=== PATIENT | male | born 1965 | race Caucasian/White ===

== ENCOUNTER → 2016-06-18 | Outpatient (CLI) | payer OTHER ==
[2016-06-18 14:43] VITALS: BP 153/83; PULSE 81; RESP 16; TEMP 98.3; BMI 51.1
--- NOTE | 2016-06-18 15:15 | P.HPBAR ---
Bariatric H&P - History & Physicial H&P Date: 06/18/16 History & Physicial: Visit/CC: Initial Consult Patient initial contact: Initial weight: 161.592 kg Initial weight in pounds: 356.00 Height: 5 ft 10 in Initial BMI: 51.1 Last weight: Current weight: 161.592 kg Current weight in pounds: 356.00 Current BMI: 51.1 [place] body weight (based on NIH guidelines): 75.296 kg Excess body weight loss: 0.0% The patient is a 51 year-old M who presents for Bariatric Assessment. Patient presents for sleeve gastrectomy constipation. The patient has been morbidly obese most of his adult life. He attended a recent information summer. He has a good understanding of the procedure. His has a LAP-BAND. Past Medical History Past Medical History: GERD/Reflux, Hypertension History of Any Multi-Drug Resistant Organisms: None Reported Past Surgical History: Adenoidectomy, Tonsillectomy Additional Past Surgical History / Comment(s): psoriasis Past Anesthesia/Blood Transfusion Reactions: No Reported Reaction Past Psychological History: No Psychological Hx Reported Smoking Status: Never smoker Past Alcohol Use History: None Reported Past Drug Use History: None Reported Surgical - Exam Vital Signs Temp Pulse Resp BP 98.3 F 81 16 153/83 06/18/16 14:39 06/18/16 14:39 06/18/16 14:39 06/18/16 14:39 - General well developed, well nourished, no distress - Eyes PERRL - ENT normal pinna - Neck no masses - Respiratory normal expansion - Cardiovascular Rhythm: regular - Abdomen Abdomen: soft Bariatric Assessment & Plan Plan: Morbid obesity with BMI 51. Patient will undergo authorization for sleeve gastrectomy. He will undergo EGD in the near future. He will also have the psych eval performed. He will follow -up in one month. Bariatric Checklist Checklist: Plan: Checklist: EGD: 1. Hiatal hernia: 2. H. Pylori: HgbA1c: Vitamin D: Smoking: Never smoker Primary care physician referral: Psychiatry clearance: Cardiology clearance: Sleep study: Diet journal: VTE risk score: VTE risk level: Rehab needs at discharge:
== END | disposition home or self-care (01) ==
LOC: BARWHC3 14:28
PROVIDERS: ATTEND Surgery
DX: Z01.812 Encounter for preprocedural laboratory examination (principal); E66.01 Morbid (severe) obesity due to excess calories; Z68.43 Body mass index [BMI] 50.0-59.9, adult
CPT/HCPCS: 99201

== ENCOUNTER 2016-06-22 08:02 | Day surgery (SDC) | payer OTHER ==
[2016-06-20 10:39] VITALS: BMI 51.0
[~2016-06-22 08:02] MED LIST: LACTATED RINGERS 1,000 ML IV SCH
[2016-06-22] MEDS ORDERED: LIDOCAINE 1% 20 ML VIAL (10MG/ML) FOR IV START INTRADERMA ONE (08:07)
[2016-06-22 08:17] VITALS: RESP 16; TEMP 97.8
[2016-06-22] MEDS ORDERED: MIDAZOLAM 2 MG/2 ML VIAL ONE (09:54)
[2016-06-22] MEDS ORDERED: KETAMINE 10 MG/ML 20 ML VIAL ONE (09:54)
[2016-06-22] MEDS ORDERED: fentaNYL (PF) 50 MCG/ML 2 ML AMP ONE (09:54)
[2016-06-22] MEDS ORDERED: LIDOCAINE 1% INJ 10MG/ML (20 ML MDV) ONE (09:54)
[2016-06-22] MEDS ORDERED: PROPOFOL 10 MG/ML 20 ML VIAL IV ONE (09:54)
--- NOTE | 2016-06-22 10:01 | P.GSHP ---
History of Present Illness H&P Date: 06/22/16 Chief Complaint: GERD, morbid obesity [employer] 51-year-old male undergoing workup for sleeve gastrectomy. He presents today for EGD. He's had some issues with GERD. Past Medical History Past Medical History: GERD/Reflux, Hypertension, Skin Disorder Additional Past Medical History / Comment(s): PSORIASIS History of Any Multi-Drug Resistant Organisms: None Reported Past Surgical History: Adenoidectomy, Tonsillectomy Additional Past Surgical History / Comment(s): COLONOSCOPY X 2 Past Anesthesia/Blood Transfusion Reactions: No Reported Reaction Past Psychological History: No Psychological Hx Reported Smoking Status: Never smoker Past Alcohol Use History: None Reported Past Drug Use History: None Reported - Past Family History Brother(s) Family Medical History: Cancer Medications and Allergies Home Medications Medication Instructions Recorded Confirmed Type Lansoprazole [Prevacid] 30 mg PO DAILY 06/18/16 06/22/16 History Losartan/Hydrochlorothiazide 1 each PO DAILY 06/18/16 06/22/16 History [Losartan-Hctz 100-25 mg Tab] amLODIPine [Norvasc] 10 mg PO DAILY 06/18/16 06/22/16 History Allergies Allergy/AdvReac Type Severity Reaction Status Date / Time No Known Allergies Allergy Verified 06/20/16 10:35 Surgical - Exam Vital Signs Temp Pulse Resp BP Pulse Ox 97.8 F 71 16 124/81 97 06/22/16 08:12 06/22/16 08:12 06/22/16 08:12 06/22/16 08:12 06/22/16 08:12 - General well developed, no distress - Eyes PERRL - ENT normal pinna - Neck no masses - Respiratory normal expansion - Cardiovascular Rhythm: regular - Abdomen Abdomen: soft Assessment and Plan Plan: GERD Pacing BMI 51 We'll perform EGD
--- NOTE | 2016-06-22 10:13 | P.OP ---
Date of Procedure: 06/22/16 Preoperative Diagnosis: GERD Morbid obesity Postoperative Diagnosis: Mild antral gastritis No evidence of hiatal hernia Mild esophagitis Procedure(s) Performed: EGD Anesthesia: MAC Surgeon: Jason Cook Pathology: other (Antrum, esophagus) Condition: stable Disposition: PACU Description of Procedure: The patient's placed on the endoscopy table in the lateral position. He received IV sedation. The gastroscope was then placed oropharynx and passed into the esophagus and into the stomach. Scope was then placed through the pylorus. The first and second portion of the duodenum appeared normal. Scope was then brought back and the antrum and this appeared mildly inflamed a biopsy was performed. The scope was then retroflexed and the remainder of the stomach appeared normal. There was no significant hiatal hernia. The GE junction was at 40 cm. There is minimal distal esophagitis. A biopsies performed. The proximal esophagus appeared normal. The scope was withdrawn for patient.
[2016-06-22 10:36] VITALS: BP 138/91; PULSE 66
== END 2016-06-22 11:00 | disposition home or self-care (01) ==
LOC: ORWHC2ENDO 08:02
PROVIDERS: ATTEND Surgery
DX: K21.0 Gastro-esophageal reflux disease with esophagitis (principal); K29.50 Unspecified chronic gastritis without bleeding; E66.01 Morbid (severe) obesity due to excess calories; Z68.43 Body mass index [BMI] 50.0-59.9, adult; I10 Essential (primary) hypertension; Z79.899 Other long term (current) drug therapy
CPT/HCPCS: 88305; 88342; 43239; J2250; J2001; J3010; J2704; 99153

== ENCOUNTER → 2016-07-16 | Outpatient (CLI) | payer OTHER ==
[2016-07-16 12:34] VITALS: BMI 51.5
[2016-07-16 16:26] VITALS: BP 141/80; PULSE 74; RESP 16; TEMP 97.8
--- NOTE | 2016-07-16 16:34 | P.HPBAR ---
Bariatric H&P - History & Physicial H&P Date: 07/16/16 History & Physicial: Visit/CC: Pre-Surg Patient initial contact: Initial weight: 161.592 kg Initial weight in pounds: 356.24 Height: 5 ft 10 in Initial BMI: 51.1 Last weight: Current weight: 163.066 kg Current weight in pounds: 359.50 Current BMI: 51.5 [place] body weight (based on NIH guidelines): 75.296 kg Excess body weight loss: The patient is a 51 year-old M who presents for Bariatric Assessment. The patient presents for sleeve gastrectomy consultation follow-up. He is hoping to have a significant gastric be done next month. His BMI 52. Review of Systems Constitutional: Reports as per HPI Past Medical History Past Medical History: GERD/Reflux, Hypertension, Skin Disorder Additional Past Medical History / Comment(s): PSORIASIS History of Any Multi-Drug Resistant Organisms: None Reported Past Surgical History: Adenoidectomy, Tonsillectomy Additional Past Surgical History / Comment(s): COLONOSCOPY X 2 Past Anesthesia/Blood Transfusion Reactions: No Reported Reaction Past Psychological History: No Psychological Hx Reported Smoking Status: Never smoker Past Alcohol Use History: None Reported Past Drug Use History: None Reported - Past Family History Brother(s) Family Medical History: Cancer Surgical - Exam Vital Signs Temp Pulse Resp BP 97.8 F 74 16 141/80 07/16/16 16:22 07/16/16 16:22 07/16/16 16:22 07/16/16 16:22 - General well developed, well nourished, no distress - Eyes PERRL - ENT normal pinna - Neck no masses - Respiratory normal expansion - Cardiovascular Rhythm: regular - Abdomen Abdomen: soft, non tender Bariatric Assessment & Plan Plan: Morbid obesity with multiple comorbidities. Patient will be scheduled for laparoscopic sleeve gastrectomy next month. I went over the risks and benefits of procedure and discussed the complications of the sleeve gastrectomy such as staple line bleeding, perforation or obstruction. Bariatric Checklist Checklist: Plan: Checklist: EGD: 1. Hiatal hernia: 2. H. Pylori: HgbA1c: Vitamin D: Smoking: Never smoker Primary care physician referral: Psychiatry clearance: Cardiology clearance: Sleep study: Diet journal: VTE risk score: VTE risk level: Rehab needs at discharge:
== END | disposition home or self-care (01) ==
LOC: BARWHC3 08:49
PROVIDERS: ATTEND Surgery
DX: Z01.818 Encounter for other preprocedural examination (principal); Z71.3 Dietary counseling and surveillance; Z68.43 Body mass index [BMI] 50.0-59.9, adult; E66.01 Morbid (severe) obesity due to excess calories
CPT/HCPCS: 97804; 99211

== ENCOUNTER 2016-08-16 08:50 | Inpatient (IN) | payer OTHER ==
[~2016-08-16 08:50] MED LIST changes: +DEXAMETHASONE SOD PHOSPHATE 10 MG/ML 1 ML VIAL IV ONE; +ENOXAPARIN 40 MG/0.4 ML SYRINGE SQ ONE; +MIDAZOLAM 2 MG/2 ML VIAL IV PRN; +ONDANSETRON 4 MG/2 ML VIAL IVP ONE; +ceFAZolin 2 GM in SODIUM CHLORIDE 0.9% 100 ML IVPB ONE
[2016-08-16] MEDS ORDERED: LIDOCAINE 1% 20 ML VIAL (10MG/ML) FOR IV START INTRADERMA ONE ×2 (09:10→09:13)
--- NOTE | 2016-08-16 10:05 | P.GSHP ---
History of Present Illness H&P Date: 08/16/16 Chief Complaint: Morbid obesity BMI 51 This a 51-year-old male who's had lifetime problems obesity. Patient presents today for laparoscopic sleeve gastrectomy. The patient is aware of risk of surgery including conversion O procedure and injury to the stomach, liver and spleen. He is also aware the risk of gastric staple line disruption, bleeding or perforation. - Constitutional Constitutional: Reports as per HPI Past Medical History Past Medical History: GERD/Reflux, Hypertension, Skin Disorder Additional Past Medical History / Comment(s): PSORIASIS. EDEMA IN ANKLES OCC, R /T ACTIVITY. History of Any Multi-Drug Resistant Organisms: None Reported Past Surgical History: Adenoidectomy, Ear Surgery, Tonsillectomy Additional Past Surgical History / Comment(s): BMT. COLONOSCOPY X 2. EGD. Past Anesthesia/Blood Transfusion Reactions: Previous Problems w/ Anesthesia Additional Past Anesthesia/Blood Transfusion Reaction / Comment(s): WOKE UP DURING COLONOSCOPY Past Psychological History: No Psychological Hx Reported Smoking Status: Never smoker Past Alcohol Use History: Occasional Past Drug Use History: None Reported - Past Family History Brother(s) Family Medical History: Cancer Medications and Allergies Home Medications Medication Instructions Recorded Confirmed Type Lansoprazole [Prevacid] 30 mg PO DAILY 06/18/16 08/16/16 History Losartan/Hydrochlorothiazide 1 each PO DAILY 06/18/16 08/16/16 History [Losartan-Hctz 100-25 mg Tab] amLODIPine [Norvasc] 10 mg PO DAILY 06/18/16 08/16/16 History Allergies Allergy/AdvReac Type Severity Reaction Status Date / Time No Known Allergies Allergy Verified 08/16/16 09:05 Surgical - Exam Vital Signs Temp Pulse Resp BP Pulse Ox 98.1 F 69 16 132/83 96 08/16/16 09:07 08/16/16 09:07 08/16/16 09:07 08/16/16 09:07 08/16/16 09:07 BMI 51 - General well developed, no distress - Eyes PERRL - ENT normal pinna - Neck no masses - Respiratory normal expansion - Cardiovascular Rhythm: regular - Abdomen Abdomen: soft, non tender Assessment and Plan Plan: Morbid obesity. We'll perform sleeve gastrectomy.
[2016-08-16] MEDS ORDERED: GLYCOPYRROLATE 0.2 MG/ML 2 ML VIAL ONE (10:30)
[2016-08-16] MEDS ORDERED: PROPOFOL 10 MG/ML 20 ML VIAL IV ONE (10:30)
[2016-08-16] MEDS ORDERED: MIDAZOLAM 2 MG/2 ML VIAL ONE (10:30)
[2016-08-16] MEDS ORDERED: LABETALOL 5 MG/ML VIAL MDV ONE (10:30)
[2016-08-16] MEDS ORDERED: fentaNYL (PF) 50 MCG/ML 2 ML AMP ONE (10:30)
[2016-08-16] MEDS ORDERED: NEOSTIGMINE 1 MG/ML 10 ML VIAL ONE (10:30)
[2016-08-16] MEDS ORDERED: ROCURONIUM BROMIDE 10 MG/ML 10 ML VIAL IV ONE (10:30)
[2016-08-16] MEDS ORDERED: METHYLENE BLUE 15 MG in SODIUM CHLORIDE 0.9% 500 ML IRRIGATION ONE (10:30)
[2016-08-16] MEDS ORDERED: SUCCINYLCHOLINE CHLORIDE VIAL 200 MG/10 ML VIAL IV ONE (10:30)
[2016-08-16] MEDS ORDERED: BUPIVACAIN-EPI 0.25%-1:200,000 30 ML VIAL SQ ONE ×2 (11:05)
[2016-08-16] MEDS ORDERED: NALOXONE 0.4 MG/ML 1 ML VIAL IV PRN (11:53)
[2016-08-16] MEDS ORDERED: HYDROmorphone 1 MG/ML 1 ML SYRINGE IVP PRN (11:53)
[2016-08-16] MEDS ORDERED: HYDROcodone/APAP 7.5-325MG 1 EACH TAB PO PRN (11:56)
--- NOTE | 2016-08-16 11:58 | P.OP ---
Date of Procedure: 08/16/16 Preoperative Diagnosis: Morbid obesity BMI 52 Postoperative Diagnosis: Warm obesity BMI 52 Procedure(s) Performed: Laparoscopic sleeve gastrectomy Anesthesia: NATHALIE Surgeon: Jason Cook Estimated Blood Loss (ml): 20 Pathology: other (Gastric remnant) Condition: stable Disposition: PACU Description of Procedure: The patient was placed on the operating room table in the supine position. She received general anesthesia and then was placed in dorsal lithotomy position. Her abdomen was prepped and draped in sterile fashion. The skin incision sites were anesthetized 1% local Xylocaine. And then the skin was incised with an 11 blade in the left lateral position. Using a blade less trocar under direct visualization the peritoneal cavity was entered. The abdomen was insufflated and then a 5 mm laparoscope was placed into the peritoneal cavity. A 5 mm trocar was placed in the right epigastric, and right lateral position. A 15 mm trocar was placed in the supra-umbilical position and another 5 mm trocar was placed in the left lateral position. The left lateral lobe of the liver was retracted. The stomach was visualized. The greater curvature of the stomach was then dissected using the Harmonic scissors. The dissection occurred approximately 5 cm from the pylorus to the level of the left deisy. There was no hiatal hernia seen. At this point a 40-Scottish bougie dilator was placed the oropharynx and passed into the esophagus and into the stomach by the BUYER BROKER. The sleeve gastrectomy was performed by using the powered echelon stapler with a seam guard buttress material. Sequential firings of the stapler were performed. The gastric remnant was then brought out through the 15 mm trocar site. The dilator was withdrawn. And a orogastric tube was replaced into the stomach. The stomach was insufflated with 200 mL of methylene blue normal saline. There was no evidence of extravasation. The abdomen was irrigated there is no bleeding seen. The Keith-Judy device was used to close the 15 mm trocar with 0 Vicryl. Skin was closed with interrupted 3-0 Monocryl sutures once the trochars withdrawn. Dermabond dressing was applied. Patient was sent to recovery in stable condition.
[2016-08-16] MEDS ORDERED: LACTATED RINGERS 1,000 ML IV ONE (12:04)
[2016-08-16] MEDS: HYDROmorphone 1 MG/ML 1 ML SYRINGE IVP PRN ×5 (12:26→13:00)
[2016-08-16] MEDS ORDERED: MIDAZOLAM 2 MG/2 ML VIAL IV ONE (13:00)
[2016-08-16] MEDS: ALBUTEROL NEBULIZED 2.5 MG/3 ML INHALATION SCH ×3 (13:06→19:21)
[2016-08-16] MEDS: 0.9% NACL WITH KCL 20 MEQ/L 1,000 ML IV SCH ×3 (14:17→22:12)
[2016-08-16] MEDS: AMPICILLIN-SULBACTAM 3 GM in SODIUM CHLORIDE 0.9% 100 ML IVPB SCH (16:40)
[2016-08-16] MEDS: ONDANSETRON 4 MG/2 ML VIAL IVP PRN (16:49)
[2016-08-17] MEDS: AMPICILLIN-SULBACTAM 3 GM in SODIUM CHLORIDE 0.9% 100 ML IVPB SCH (00:12)
[2016-08-17] MEDS ORDERED: ACETAMINOPHEN IV (For NPO) 1,000 MG in EMPTY BAG 1 BAG IVPB ONE (04:37)
[2016-08-17] MEDS: ONDANSETRON 4 MG/2 ML VIAL IVP PRN ×3 (05:00→22:14)
[2016-08-17 07:44] LABS: Basophils % (A) 0 %; CH 31.2; CHCM 35.3; Eosinophils % (A) 0 %; HCT 43.7 % (39.0-53.0); HDW 2.78; HGB 15.3 gm/dL (13.0-17.5); Luc # (Auto) 0.13; Luc % (Auto) 1; Lymphocytes # (A) 0.9 k/uL (1.0-4.8); Lymphocytes % (A) 6 %; MCH 31.1 pg (25.0-35.0); MCV 88.8 fL (80.0-100.0); Monocytes # (A) 0.9 k/uL (0-1.0); Monocytes % (A) 7 %; Neutrophils # (A) 12.4 k/uL (1.3-7.7); Neutrophils % (A) 86 %; RBC 4.92 m/uL (4.30-5.90); RDW 13.3 % (11.5-15.5); WBC 14.5 k/uL (3.8-10.6); WBC (Perox) 15.15
[2016-08-17 07:50] LABS: Anion Gap 11 mmol/L; Blood Urea Nitrogen 10 mg/dL (9-20); Calcium 8.7 mg/dL (8.4-10.2); Carbon Dioxide 24 mmol/L (22-30); Chloride 101 mmol/L (98-107); Magnesium 1.9 mg/dL (1.6-2.3); Non-African American GFR(MDRD) >60 (>60 ml/min/1.73 sqM); Phosphorous 2.9 mg/dL (2.5-4.5); Potassium 4.3 mmol/L (3.5-5.1); Sodium 136 mmol/L (137-145)
[2016-08-17] MEDS: ENOXAPARIN 60 MG/0.6 ML SYRINGE SQ SCH ×2 (08:33→22:14)
[2016-08-17] MEDS: ALBUTEROL NEBULIZED 2.5 MG/3 ML INHALATION SCH ×4 (08:48→20:29)
--- NOTE | 2016-08-17 10:48 | FL ---
EXAMINATION TYPE: FL UGI DATE OF EXAM ORDERED: 08/17/2016 10:29 AM HISTORY: Postop gastric sleeve surgery. COMPARISON: None. FINDINGS: There is a moderate amount of holdup egress of barium from the esophagus into the gastric s leeve. This does eventually empty. The ligament of Treitz is in the normal location. There is no sign ificant free air. There is no extravasation. IMPRESSION: STATUS POST GASTRIC SLEEVE.
[2016-08-17] MEDS: LOSARTAN-HCTZ 50-12.5 MG 1 EACH TAB PO SCH (11:09)
[2016-08-17] MEDS: amLODIPine 10 MG TAB PO SCH (11:10)
[2016-08-17] MEDS ORDERED: METOCLOPRAMIDE 5 MG/ML 2 ML VIAL IVP PRN (14:53)
[2016-08-17 15:19] VITALS: BMI 51.1
--- NOTE | 2016-08-17 16:49 | P.PN ---
Subjective Principal diagnosis: Morbid obesity Patient is a 51-year-old male with medical history significant for morbid obesity presenting to the hospital for elective laparoscopic sleeve gastrectomy. Patient tolerated procedure well. Patient is evaluated on the surgical unit is postop day #1. Upper GI series with evidence of moderate obstruction, no leak. Patient denies dysphagia. Patient complains of some nausea without vomiting. Denies chills, fevers, shortness of breath, or chest pain. Denies flatus or bowel movement. Patient complains of burping. Incisional pain controlled. Patient has been up ambulating. Patient is urinating without difficulty. Patient is tolerating a clear liquid diet. Afebrile. Hemodynamically stable. WBC 14.5. Hemoglobin 15.3. Objective - Vital Signs Vital signs: Vital Signs Temp 98.1 F 08/17/16 15:00 Pulse 92 08/17/16 16:05 Resp 16 08/17/16 16:00 BP 147/92 08/17/16 15:00 Pulse Ox 95 08/17/16 15:00 Intake & Output 08/16/16 08/17/16 08/17/16 18:59 06:59 18:59 Intake Total 1800 1450 Output Total 1410 700 700 Balance 390 750 -700 Weight 161.706 kg 161.706 kg Intake: IV 1800 1450 0.9% NaCl with KCl 20 Meq 1350 /l 1,000 ml @ 150 mls/hr IV .Q6H40M PAU Rx#: [id number] Ampicillin-Sulbactam 3 gm 100 In Sodium Chloride 0.9% 100 ml @ 100 mls/hr IVPB Q6HR PAU Rx#:[id number] Output: Urine 1400 700 700 Estimated Blood Loss 10 Other: Voiding Method Toilet Toilet Toilet # Voids 1 4 4 - Exam GENERAL: Pt awake and alert, well-appearing, well-nourished, and in no acute distress. LUNGS: Breath sounds diminished to auscultation bilaterally. No wheezes, rales , or rhonchi. HEART: Heart S1, S2, no S3 or S4. Regular rate and rhythm. No murmurs, rubs or gallops. ABDOMEN: Soft, obese, mild incisional tenderness, nondistended, hypoactive bowel sounds. No guarding, no rebound. Laparoscopic surgical incisions approximated, dry, no erythema and drainage. EXTREMITIES: Palpable peripheral pulses. No calf tenderness. NEUROLOGICAL: Pt oriented x 3. - Labs CBC & Chem 7: 08/17/16 06:41 08/17/16 06:41 Labs: Abnormal Lab Results - Last 24 Hours (Table) 08/17/16 08/17/16 Range/Units 06:41 06:41 WBC 14.5 H (3.8-10.6) k/uL Neutrophils # 12.4 H (1.3-7.7) k/uL Lymphocytes # 0.9 L (1.0-4.8) k/uL Sodium 136 L (137-145) mmol/L Assessment and Plan Plan: Impression: 1. Morbid obesity status post laparoscopic sleeve gastrectomy. 2. Leukocytosis, suspect reactive. Plan: Continue to monitor patient. Continue IV hydration. Continue bariatric clear liquid diet. Continue supportive treatment pain management. Increase ambulation. Continue GI and DVT prophylaxis. Continue incentive spirometry 10 times an hour while awake. Possible discharge home later this afternoon pending clinical status. The above impression and plan have been discussed and directed by Dr. Dr. Cook. Joyce DODGE acting as scribe for Dr. Cook.
[2016-08-18] MEDS: amLODIPine 10 MG TAB PO SCH (08:37)
[2016-08-18] MEDS: LOSARTAN-HCTZ 50-12.5 MG 1 EACH TAB PO SCH (08:37)
[2016-08-18] MEDS: ENOXAPARIN 60 MG/0.6 ML SYRINGE SQ SCH (08:38)
[2016-08-18] MEDS: ALBUTEROL NEBULIZED 2.5 MG/3 ML INHALATION SCH ×2 (08:52→10:57)
[2016-08-18 09:05] VITALS: BP 148/74; RESP 16; TEMP 98.1
[2016-08-18 11:13] VITALS: PULSE 90
--- NOTE | 2016-08-18 12:29 | P.DS ---
Providers Date of admission: 08/16/16 08:50 Expected date of discharge: 08/18/16 Attending physician: Jason Cook Consults: 08/16/16 11:53 Consult Physician Routine Consulting Provider: Sukhdeep Vasquez Consult Reason/Comments: Medical management Do you want consulting provider notified?: Yes Primary care physician: Stated None Hospital Course: This a 51-year-old male who underwent laparoscopic sleeve gastrectomy on 2016. The patient did well postoperative. Please see hospital chart for r for details. Pertinent Studies: Esophagram upper GI Procedures: Laparoscopic sleeve gastrectomy Patient Condition at Discharge: Good Plan - Discharge Summary New Discharge Prescriptions: HYDROcodone/APAP 7.5-325MG [[place] 7.5-325] 1 tab PO Q6HR PRN #28 tab PRN Reason: Pain Ondansetron Odt [Zofran ODT] 8 mg PO Q8HR #20 tab Sucralfate [Carafate] 1 gm PO TID #90 tablet Discharge Medication List Lansoprazole [Prevacid] 30 mg PO DAILY 06/18/16 [History] Losartan/Hydrochlorothiazide [Losartan-Hctz 100-25 mg Tab] 1 tab PO DAILY [History] amLODIPine [Norvasc] 10 mg PO DAILY 06/18/16 [History] HYDROcodone/APAP 7.5-325MG [[place] 7.5-325] 1 tab PO Q6HR PRN #28 tab 08/16/16 [ Rx] Ondansetron Odt [Zofran ODT] 8 mg PO Q8HR #20 tab 08/16/16 [Rx] Sucralfate [Carafate] 1 gm PO TID #90 tablet 08/16/16 [Rx] Follow up Appointment(s)/Referral(s): Sukhdeep Vasquez MD [STAFF PHYSICIAN] - 08/23/16 2:30 pm Jason Cook MD [STAFF PHYSICIAN] - 08/27/16 1:00 pm (Follow-up in bariatric center) Patient Instructions/Handouts: Laparoscopic Sleeve Gastrectomy (DC) Activity/Diet/Wound Care/Special Instructions: No heavy lifting, pushing, or pulling items greater than 10 pounds. Bariatric diet as previously directed. No caffeinated beverages or straws. Shower daily, no soaking in bath tubs, pools, or hot tubs. No driving while taking pain medication. Notify surgeon with any signs or symptoms of infection, increased pain, or not tolerating diet. Discharge Disposition: HOME SELF-CARE
== END 2016-08-18 12:20 | disposition home or self-care (01) | DRG 621 ==
LOC: 2ORWHC 08:50 → 3SUR 12:00
PROVIDERS: ADMIT Surgery; ATTEND Surgery
PROC: 0DB64Z3 Excision of Stomach, Percutaneous Endoscopic Approach, Vertical (ICD-10-PCS; principal; 2016-08-16 10:00)
DX: E66.01 Morbid (severe) obesity due to excess calories (principal); I10 Essential (primary) hypertension; K21.9 Gastro-esophageal reflux disease without esophagitis; D72.829 Elevated white blood cell count, unspecified; R11.0 Nausea; L40.9 Psoriasis, unspecified; R60.9 Edema, unspecified; Z80.9 Family history of malignant neoplasm, unspecified; Z79.899 Other long term (current) drug therapy; Z68.43 Body mass index [BMI] 50.0-59.9, adult; Z71.3 Dietary counseling and surveillance; Z86.69 Personal history of other diseases of the nervous system and sense organs
CPT/HCPCS: 74240; 80051; 82310; 82565; 83735; 84100; 84520; 85025; 88307; 94640; 94760; 94762

== ENCOUNTER → 2016-08-27 | Outpatient (CLI) | payer OTHER ==
--- NOTE | 2016-08-27 08:49 | P.HPBAR ---
Bariatric H&P - History & Physicial H&P Date: 08/27/16 History & Physicial: Visit/CC: Patient initial contact: Initial weight: 161.592 kg Initial weight in pounds: Height: Initial BMI: Last weight: Current weight: Current weight in pounds: Current BMI: [place] body weight (based on NIH guidelines): Excess body weight loss: The patient is a 51 year-old M who presents for Bariatric Assessment. The patient presents today for sleeve gastrectomy fall. He is doing quite well. He is presents for 2 weeks postoperatively. He's lost approximately 40 pounds since his initial consultation. He does have problems with back pain. Patient states that his back pain is worsened since his surgery he attributes this to his stay in the hospital bed. He is currently seeing Dr. Ibarra. sarai Miller has decreased some of his hypertensive medications. Past Medical History Past Medical History: GERD/Reflux, Hypertension, Skin Disorder Additional Past Medical History / Comment(s): PSORIASIS. EDEMA IN ANKLES OCC, R /T ACTIVITY. History of Any Multi-Drug Resistant Organisms: None Reported Past Surgical History: Adenoidectomy, Ear Surgery, Tonsillectomy Additional Past Surgical History / Comment(s): BMT. COLONOSCOPY X 2. EGD. Past Anesthesia/Blood Transfusion Reactions: Previous Problems w/ Anesthesia Additional Past Anesthesia/Blood Transfusion Reaction / Comm: WOKE UP DURING COLONOSCOPY Past Psychological History: No Psychological Hx Reported Smoking Status: Never smoker Past Alcohol Use History: Occasional Past Drug Use History: None Reported - Past Family History Brother(s) Family Medical History: Cancer Surgical - Exam - General well developed, no distress - Eyes PERRL - Neck no masses - Respiratory normal expansion - Cardiovascular Rhythm: regular - Abdomen Abdomen: soft, non tender Bariatric Assessment & Plan Plan: Status post sleeve gastrectomy. Patient is doing quite well. He'll follow-up in 2 weeks. His back pain hopefully will improve once he relates some more. Bariatric Checklist Checklist: Plan: Checklist: EGD: 1. Hiatal hernia: 2. H. Pylori: HgbA1c: Vitamin D: Smoking: Never smoker Primary care physician referral: Psychiatry clearance: Cardiology clearance: Sleep study: Diet journal: VTE risk score: VTE risk level: Rehab needs at discharge:
[2016-08-27 09:10] VITALS: BP 125/89; PULSE 84; RESP 14; TEMP 97.6; BMI 48.4
--- NOTE | 2016-08-27 10:32 | P.HPBAR ---
Bariatric H&P - History & Physicial H&P Date: 08/27/16 History & Physicial: Visit/CC: Patient initial contact: Initial weight: 161.592 kg Initial weight in pounds: Height: Initial BMI: Last weight: Current weight: Current weight in pounds: Current BMI: [place] body weight (based on NIH guidelines): Excess body weight loss: The patient is a 51 year-old M who presents for Bariatric Assessment. The patient presents today for sleeve gastrectomy follow-up. He is doing quite well. He's had minimal complaints of pain. He's had minimal GERD. Review of Systems Constitutional: Reports as per HPI Past Medical History Past Medical History: GERD/Reflux, Hypertension, Skin Disorder Additional Past Medical History / Comment(s): PSORIASIS. EDEMA IN ANKLES OCC, R /T ACTIVITY. History of Any Multi-Drug Resistant Organisms: None Reported Past Surgical History: Adenoidectomy, Ear Surgery, Tonsillectomy Additional Past Surgical History / Comment(s): BMT. COLONOSCOPY X 2. EGD., gastric sleeve 08/16/16 Dr.Zubin Cook Past Anesthesia/Blood Transfusion Reactions: Previous Problems w/ Anesthesia Additional Past Anesthesia/Blood Transfusion Reaction / Comm: WOKE UP DURING COLONOSCOPY Past Psychological History: No Psychological Hx Reported Smoking Status: Never smoker Past Alcohol Use History: Occasional Past Drug Use History: None Reported - Past Family History Brother(s) Family Medical History: Cancer Surgical - Exam Vital Signs Temp Pulse Resp BP 97.6 F 84 14 125/89 08/27/16 09:08 08/27/16 09:08 08/27/16 09:08 08/27/16 09:08 - General well developed, no distress - Eyes PERRL - Cardiovascular Rhythm: regular - Abdomen Abdomen: soft, non tender Bariatric Assessment & Plan Plan: Status post sleeve gastrectomy. Patient is doing quite well. He'll follow-up in 2 weeks. He is doing well postoperatively. Bariatric Checklist Checklist: Plan: Checklist: EGD: 1. Hiatal hernia: 2. H. Pylori: HgbA1c: Vitamin D: Smoking: Never smoker Primary care physician referral: Psychiatry clearance: Cardiology clearance: Sleep study: Diet journal: VTE risk score: VTE risk level: Rehab needs at discharge:
== END | disposition home or self-care (01) ==
LOC: BARWHC3 08:55
PROVIDERS: ATTEND Surgery
DX: Z48.815 Encounter for surgical aftercare following surgery on the digestive system (principal); Z71.3 Dietary counseling and surveillance; E66.01 Morbid (severe) obesity due to excess calories; K21.9 Gastro-esophageal reflux disease without esophagitis; Z98.84 Bariatric surgery status
CPT/HCPCS: 97803; 99211

== ENCOUNTER → 2016-09-10 | Outpatient (CLI) | payer OTHER ==
[2016-09-10 15:10] VITALS: BMI 47.2
[2016-09-10 15:12] VITALS: BP 129/86; PULSE 62; RESP 15; TEMP 98.3
--- NOTE | 2016-09-10 15:53 | P.HPBAR ---
Bariatric H&P - History & Physicial H&P Date: 09/10/16 History & Physicial: Visit/CC: Patient initial contact: Initial weight: 161.592 kg Initial weight in pounds: 356.24 Height: 5 ft 10 in Initial BMI: 51.1 Last weight: Current weight: 149.187 kg Current weight in pounds: 328.90 Current BMI: 47.2 [place] body weight (based on NIH guidelines): 75.296 kg Excess body weight loss: 14.3% The patient is a 51 year-old M who presents for Bariatric Assessment. The patient presents today for sleeve gastrectomy fall. He has had good weight loss. He has some complaints of GERD. Past Medical History Past Medical History: GERD/Reflux, Hypertension, Skin Disorder Additional Past Medical History / Comment(s): PSORIASIS. EDEMA IN ANKLES OCC, R /T ACTIVITY. History of Any Multi-Drug Resistant Organisms: None Reported Past Surgical History: Adenoidectomy, Ear Surgery, Tonsillectomy Additional Past Surgical History / Comment(s): BMT. COLONOSCOPY X 2. EGD., gastric sleeve 08/16/16 Dr.Zubin Cook Past Anesthesia/Blood Transfusion Reactions: Previous Problems w/ Anesthesia Additional Past Anesthesia/Blood Transfusion Reaction / Comm: WOKE UP DURING COLONOSCOPY Past Psychological History: No Psychological Hx Reported Smoking Status: Never smoker Past Alcohol Use History: Occasional Past Drug Use History: None Reported - Past Family History Brother(s) Family Medical History: Cancer Surgical - Exam Vital Signs Temp Pulse Resp BP 98.3 F 62 15 129/86 09/10/16 14:50 09/10/16 14:50 09/10/16 14:50 09/10/16 14:50 - General well developed, no distress - Eyes PERRL - ENT normal pinna - Neck no masses - Respiratory normal expansion - Abdomen Abdomen: soft, non tender Bariatric Assessment & Plan Plan: Status post sleeve history. Patient is doing well. His GERD symptoms are being treated with omeprazole. He'll follow-up in one month Bariatric Checklist Checklist: Plan: Checklist: EGD: 1. Hiatal hernia: 2. H. Pylori: HgbA1c: Vitamin D: Smoking: Never smoker Primary care physician referral: kirby ([place]) Psychiatry clearance: Cardiology clearance: Sleep study: Diet journal: VTE risk score: VTE risk level: Rehab needs at discharge:
== END | disposition home or self-care (01) ==
LOC: BARWHC3 13:34
PROVIDERS: ATTEND Surgery
DX: E66.01 Morbid (severe) obesity due to excess calories (principal); I10 Essential (primary) hypertension; K21.9 Gastro-esophageal reflux disease without esophagitis; Z98.84 Bariatric surgery status
CPT/HCPCS: 97803; 99211

== ENCOUNTER → 2016-10-29 | Outpatient (CLI) | payer OTHER ==
[2016-10-29 13:41] VITALS: BP 144/94; PULSE 61; RESP 14; TEMP 97.9; BMI 42.6
--- NOTE | 2016-10-29 13:53 | P.HPBAR ---
Bariatric H&P - History & Physicial H&P Date: 10/29/16 History & Physicial: Visit/CC: difficulty swallowing/vomiting Patient initial contact: Initial weight: 161.592 kg Initial weight in pounds: 356.24 Height: 5 ft 10 in Initial BMI: 51.1 Last weight: Current weight: 134.717 kg Current weight in pounds: 297.00 Current BMI: 42.6 [place] body weight (based on NIH guidelines): 75.296 kg Excess body weight loss: 31.1% The patient is a 51 year-old M who presents for Bariatric Assessment. Patient is doing fairly well. He complains of some mild dysphagia. He states that he had a piece of sausage stomach. Past Medical History Past Medical History: GERD/Reflux, Hypertension, Skin Disorder Additional Past Medical History / Comment(s): PSORIASIS. EDEMA IN ANKLES OCC, R /T ACTIVITY. History of Any Multi-Drug Resistant Organisms: None Reported Past Surgical History: Adenoidectomy, Ear Surgery, Tonsillectomy Additional Past Surgical History / Comment(s): BMT. COLONOSCOPY X 2. EGD., gastric sleeve 08/16/16 Dr.Zubin Cook Past Anesthesia/Blood Transfusion Reactions: Previous Problems w/ Anesthesia Additional Past Anesthesia/Blood Transfusion Reaction / Comm: WOKE UP DURING COLONOSCOPY Past Psychological History: No Psychological Hx Reported Smoking Status: Never smoker Past Alcohol Use History: Occasional Past Drug Use History: None Reported - Past Family History Brother(s) Family Medical History: Cancer Surgical - Exam Vital Signs Temp Pulse Resp BP 97.9 F 61 14 144/94 10/29/16 13:09 10/29/16 13:09 10/29/16 13:09 10/29/16 13:09 - General well developed, no distress - Eyes PERRL - ENT normal pinna - Neck no masses - Respiratory normal expansion - Cardiovascular Rhythm: regular - Abdomen Abdomen: soft, non tender Bariatric Assessment & Plan Plan: Status post sleeve gastrectomy. Patient underwent loss. He'll follow-up in 2 weeks. If he has any dysphagia he will undergo esophagram/upper GI. Bariatric Checklist Checklist: Plan: Checklist: EGD: 1. Hiatal hernia: 2. H. Pylori: HgbA1c: Vitamin D: Smoking: Never smoker Primary care physician referral: merckler ([place]) Psychiatry clearance: Cardiology clearance: Sleep study: Diet journal: VTE risk score: VTE risk level: Rehab needs at discharge:
[2016-10-29 14:31] LABS: CH 30.9; HCT 48.7 % (39.0-53.0); HDW 2.53; HGB 16.4 gm/dL (13.0-17.5); MCH 31.7 pg (25.0-35.0); MCHC 33.7 g/dL (31.0-37.0); MCV 94.1 fL (80.0-100.0); Mean Platelet Volume 7.5; RBC 5.17 m/uL (4.30-5.90); RDW 13.3 % (11.5-15.5); WBC 6.8 k/uL (3.8-10.6)
[2016-10-29 15:02] LABS: ALT 43 U/L (21-72); AST 25 U/L (17-59); Alkaline Phosphatase 79 U/L (38-126); Anion Gap 12 mmol/L; Blood Urea Nitrogen 20 mg/dL (9-20); Calcium 9.2 mg/dL (8.4-10.2); Carbon Dioxide 24 mmol/L (22-30); Chloride 106 mmol/L (98-107); Glucose 89 mg/dL (74-99); Non-African American GFR(MDRD) >60 (>60 ml/min/1.73 sqM); Potassium 4.4 mmol/L (3.5-5.1); Sodium 142 mmol/L (137-145); Total Protein 6.4 g/dL (6.3-8.2)
[2016-10-29 15:11] LABS: Total Iron Binding Capacity 302 ug/dL (261-462)
[2016-10-29 16:07] LABS: Vitamin B12 973 pg/mL (239-931)
== END | disposition home or self-care (01) ==
LOC: BARWHC3 12:14
PROVIDERS: ATTEND Surgery
DX: Z48.815 Encounter for surgical aftercare following surgery on the digestive system (principal); E55.9 Vitamin D deficiency, unspecified; E66.01 Morbid (severe) obesity due to excess calories; Z68.41 Body mass index [BMI] 40.0-44.9, adult; Z98.84 Bariatric surgery status
CPT/HCPCS: 80053; 82306; 82607; 82746; 83550; 84425; 85027; 97803; 99211

== ENCOUNTER → 2016-11-12 | Outpatient (CLI) | payer OTHER ==
[2016-11-12 17:24] VITALS: BP 140/82; PULSE 56; RESP 16; TEMP 98.4; BMI 42.1
--- NOTE | 2016-11-26 16:50 | P.HPBAR ---
Bariatric H&P - History & Physicial H&P Date: 11/12/16 History & Physicial: Visit/CC: sleeve f/u Patient initial contact: Initial weight: 161.592 kg Initial weight in pounds: 356.24 Height: 5 ft 10 in Initial BMI: 51.1 Last weight: Current weight: 133.311 kg Current weight in pounds: 293.90 Current BMI: 42.1 [place] body weight (based on NIH guidelines): 75.296 kg Excess body weight loss: 32.7% The patient is a 51 year-old M who presents for Bariatric Assessment. Patient presents today for sleeve gastrectomy fall. He's had good weight loss. The patient lost 4 pounds. He has minimal complaints of GERD and arthritis in his knees. Past Medical History Past Medical History: GERD/Reflux, Hypertension, Skin Disorder Additional Past Medical History / Comment(s): PSORIASIS. EDEMA IN ANKLES OCC, R /T ACTIVITY. History of Any Multi-Drug Resistant Organisms: None Reported Past Surgical History: Adenoidectomy, Ear Surgery, Tonsillectomy Additional Past Surgical History / Comment(s): BMT. COLONOSCOPY X 2. EGD., gastric sleeve 08/16/16 Dr.Zubin Cook Past Anesthesia/Blood Transfusion Reactions: Previous Problems w/ Anesthesia Additional Past Anesthesia/Blood Transfusion Reaction / Comm: WOKE UP DURING COLONOSCOPY Past Psychological History: No Psychological Hx Reported Smoking Status: Never smoker - Past Family History Brother(s) Family Medical History: Cancer Surgical - Exam Vital Signs Temp Pulse Resp BP 98.4 F 56 L 16 140/82 11/12/16 17:17 11/12/16 17:17 11/12/16 17:17 11/12/16 17:17 - General well developed - Eyes PERRL - Abdomen Abdomen: soft, non tender Bariatric Assessment & Plan Plan: Status post sleeve gastrectomy. Patient is doing well. He'll follow-up in one month. His GERD and arthritis symptoms we'll observe. Bariatric Checklist Checklist: Plan: Checklist: EGD: 1. Hiatal hernia: 2. H. Pylori: HgbA1c: Vitamin D: Smoking: Never smoker Primary care physician referral: kirby ([place]) Psychiatry clearance: Cardiology clearance: Sleep study: Diet journal: VTE risk score: VTE risk level: Rehab needs at discharge:
== END | disposition home or self-care (01) ==
LOC: BARWHC3 14:55
PROVIDERS: ATTEND Surgery
DX: Z09 Encounter for follow-up examination after completed treatment for conditions other than malignant neoplasm (principal); K21.9 Gastro-esophageal reflux disease without esophagitis; I10 Essential (primary) hypertension; Z98.84 Bariatric surgery status
CPT/HCPCS: 99211

== ENCOUNTER → 2017-02-11 | Outpatient (CLI) | payer OTHER ==
[2017-02-11 13:03] VITALS: BP 140/89; PULSE 63; RESP 16; TEMP 98.4; BMI 36.4
--- NOTE | 2017-02-11 13:57 | P.HPBAR ---
Bariatric H&P - History & Physicial H&P Date: 02/11/17 History & Physicial: Visit/CC: sleeve f/u (July 2016) Patient initial contact: Initial weight: 161.592 kg Initial weight in pounds: 356.24 Height: 5 ft 10 in Initial BMI: 51.1 Last weight: Current weight: 115.167 kg Current weight in pounds: 253.90 Current BMI: 36.4 [place] body weight (based on NIH guidelines): 75.296 kg Excess body weight loss: 53.7% The patient is a 51 year-old M who presents for Bariatric Assessment. Patient presents today for sleep gastric in follow-up. He feels well. He's had some minimal GERD. Past Medical History Past Medical History: GERD/Reflux, Hypertension, Skin Disorder Additional Past Medical History / Comment(s): PSORIASIS. EDEMA IN ANKLES OCC, R /T ACTIVITY. History of Any Multi-Drug Resistant Organisms: None Reported Past Surgical History: Adenoidectomy, Ear Surgery, Tonsillectomy Additional Past Surgical History / Comment(s): BMT. COLONOSCOPY X 2. EGD., gastric sleeve 08/16/16 Dr.Zubin Cook Past Anesthesia/Blood Transfusion Reactions: Previous Problems w/ Anesthesia Additional Past Anesthesia/Blood Transfusion Reaction / Comm: WOKE UP DURING COLONOSCOPY Smoking Status: Never smoker - Past Family History Brother(s) Family Medical History: Cancer Surgical - Exam Vital Signs Temp Pulse Resp BP 98.4 F 63 16 140/89 02/11/17 12:48 02/11/17 12:48 02/11/17 12:48 02/11/17 12:48 - General well developed, no distress - Eyes PERRL - ENT normal pinna - Neck no masses - Abdomen Abdomen: soft, non tender Bariatric Assessment & Plan Plan: The patient's GERD symptoms are minimal. There will be observed. He thinks that his GERD is due to eating too quickly. He has done excellent with weight loss. He'll follow-up in 2 months. Bariatric Checklist Checklist: Plan: Checklist: EGD: 1. Hiatal hernia: 2. H. Pylori: HgbA1c: Vitamin D: Smoking: Never smoker Primary care physician referral: kirby ([place]) Psychiatry clearance: Cardiology clearance: Sleep study: Diet journal: VTE risk score: VTE risk level: Rehab needs at discharge:
[2017-02-11 14:05] LABS: CH 31.3; CHCM 33.4; HCT 46.6 % (39.0-53.0); HDW 2.58; MCH 30.4 pg (25.0-35.0); MCHC 32.2 g/dL (31.0-37.0); MCV 94.3 fL (80.0-100.0); Mean Platelet Volume 7.6; RBC 4.94 m/uL (4.30-5.90); WBC 8.4 k/uL (3.8-10.6)
[2017-02-11 15:05] LABS: ALT 34 U/L (21-72); AST 19 U/L (17-59); Alkaline Phosphatase 65 U/L (38-126); Anion Gap 7 mmol/L; Blood Urea Nitrogen 20 mg/dL (9-20); Calcium 8.8 mg/dL (8.4-10.2); Carbon Dioxide 26 mmol/L (22-30); Chloride 106 mmol/L (98-107); Glucose 89 mg/dL (74-99); Non-African American GFR(MDRD) >60 (>60 ml/min/1.73 sqM); Sodium 139 mmol/L (137-145); Total Bilirubin 0.7 mg/dL (0.2-1.3); Total Protein 5.7 g/dL (6.3-8.2)
[2017-02-11 15:40] LABS: Vitamin B12 831 pg/mL (239-931)
== END | disposition home or self-care (01) ==
LOC: BARWHC3 12:37
PROVIDERS: ATTEND Surgery
DX: Z48.815 Encounter for surgical aftercare following surgery on the digestive system (principal); K21.9 Gastro-esophageal reflux disease without esophagitis; E66.01 Morbid (severe) obesity due to excess calories; E55.9 Vitamin D deficiency, unspecified; Z98.84 Bariatric surgery status
CPT/HCPCS: 80053; 82306; 82607; 84425; 85027; 97802; 99211

== ENCOUNTER → 2017-08-05 | Outpatient (CLI) | payer OTHER ==
[2017-08-05 15:08] VITALS: BMI 30.9
[2017-08-05 15:09] VITALS: BP 146/93; PULSE 50; TEMP 97.9
[2017-08-05 15:36] LABS: HCT 41.5 % (39.0-53.0); HGB 14.1 gm/dL (13.0-17.5); MCH 30.9 pg (25.0-35.0); MCHC 33.9 g/dL (31.0-37.0); MCV 91.3 fL (80.0-100.0); Mean Platelet Volume 6.9; Platelet Count 231 k/uL (150-450); RBC 4.55 m/uL (4.30-5.90); RDW 12.8 % (11.5-15.5)
[2017-08-05 15:56] LABS: ALT 37 U/L (21-72); AST 34 U/L (17-59); Albumin 3.8 g/dL (3.5-5.0); Alkaline Phosphatase 68 U/L (38-126); Anion Gap 7 mmol/L; Blood Urea Nitrogen 26 mg/dL (9-20); Calcium 8.9 mg/dL (8.4-10.2); Carbon Dioxide 28 mmol/L (22-30); Chloride 107 mmol/L (98-107); Glucose 96 mg/dL (74-99); Potassium 4.6 mmol/L (3.5-5.1); Sodium 142 mmol/L (137-145); Total Bilirubin 0.9 mg/dL (0.2-1.3); Total Protein 6.1 g/dL (6.3-8.2)
--- NOTE | 2017-08-05 16:18 | P.HPBAR ---
Bariatric H&P - History & Physicial H&P Date: 08/05/17 History & Physicial: Visit/CC: one year follow up Patient initial contact: Initial weight: 161.592 kg Initial weight in pounds: 356.25 Height: 5 ft 10 in Initial BMI: 51.1 Last weight: Current weight: 97.976 kg Current weight in pounds: 216.00 Current BMI: 30.9 [place] body weight (based on NIH guidelines): 75.296 kg Excess body weight loss: 73.7% The patient is a 52 year-old M who presents for Bariatric Assessment. The patient presents today for sleeve gastrectomy fall. He he feels well. He's had some mild complaints of GERD. Past Medical History Past Medical History: GERD/Reflux, Hypertension, Skin Disorder Additional Past Medical History / Comment(s): PSORIASIS. EDEMA IN ANKLES OCC, R /T ACTIVITY. History of Any Multi-Drug Resistant Organisms: None Reported Past Surgical History: Adenoidectomy, Bariatric Surgery, Ear Surgery, Tonsillectomy Additional Past Surgical History / Comment(s): BMT. COLONOSCOPY X 2. EGD., gastric sleeve 08/16/16 Dr.Zubin Cook Past Anesthesia/Blood Transfusion Reactions: Previous Problems w/ Anesthesia Additional Past Anesthesia/Blood Transfusion Reaction / Comm: WOKE UP DURING COLONOSCOPY Past Psychological History: No Psychological Hx Reported Smoking Status: Never smoker Past Alcohol Use History: Occasional Past Drug Use History: None Reported - Past Family History Brother(s) Family Medical History: Cancer Surgical - Exam Vital Signs Temp Pulse BP 97.9 F 50 L 146/93 08/05/17 15:07 08/05/17 15:07 08/05/17 15:07 - General well developed, no distress - Eyes PERRL - ENT normal pinna - Neck no masses - Respiratory normal expansion - Cardiovascular Rhythm: regular - Abdomen Abdomen: soft, non tender Results - Labs 08/05/17 15:15 08/05/17 15:15 Abnormal Lab Results - Last 24 Hours (Table) 08/05/17 Range/Units 15:15 BUN 26 H (9-20) mg/dL Total Protein 6.1 L (6.3-8.2) g/dL Diabetes panel 08/05/17 Range/Units 15:15 Sodium 142 (137-145) mmol/L Potassium 4.6 (3.5-5.1) mmol/L Chloride 107 (98-107) mmol/L Carbon Dioxide 28 (22-30) mmol/L BUN 26 H (9-20) mg/dL Creatinine 0.82 (0.66-1.25) mg/dL Glucose 96 (74-99) mg/dL Calcium 8.9 (8.4-10.2) mg/dL AST 34 (17-59) U/L ALT 37 (21-72) U/L Alkaline Phosphatase 68 (38-126) U/L Total Protein 6.1 L (6.3-8.2) g/dL Albumin 3.8 (3.5-5.0) g/dL Calcium panel 08/05/17 Range/Units 15:15 Calcium 8.9 (8.4-10.2) mg/dL Albumin 3.8 (3.5-5.0) g/dL Pituitary panel 08/05/17 Range/Units 15:15 Sodium 142 (137-145) mmol/L Potassium 4.6 (3.5-5.1) mmol/L Chloride 107 (98-107) mmol/L Carbon Dioxide 28 (22-30) mmol/L BUN 26 H (9-20) mg/dL Creatinine 0.82 (0.66-1.25) mg/dL Glucose 96 (74-99) mg/dL Calcium 8.9 (8.4-10.2) mg/dL Adrenal panel 08/05/17 Range/Units 15:15 Sodium 142 (137-145) mmol/L Potassium 4.6 (3.5-5.1) mmol/L Chloride 107 (98-107) mmol/L Carbon Dioxide 28 (22-30) mmol/L BUN 26 H (9-20) mg/dL Creatinine 0.82 (0.66-1.25) mg/dL Glucose 96 (74-99) mg/dL Calcium 8.9 (8.4-10.2) mg/dL Total Bilirubin 0.9 (0.2-1.3) mg/dL AST 34 (17-59) U/L ALT 37 (21-72) U/L Alkaline Phosphatase 68 (38-126) U/L Total Protein 6.1 L (6.3-8.2) g/dL Albumin 3.8 (3.5-5.0) g/dL Bariatric Assessment & Plan Plan: Status post sleeve gastrectomy. Patient is an excellent weight loss. His GERD some minimal will be observed. He'll follow-up in 2 months. Bariatric Checklist Checklist: Plan: Checklist: EGD: 1. Hiatal hernia: 2. H. Pylori: HgbA1c: Vitamin D: Smoking: Never smoker Primary care physician referral: kirby ([place]) Psychiatry clearance: Cardiology clearance: Sleep study: Diet journal: VTE risk score: VTE risk level: Rehab needs at discharge:
[2017-08-06 03:36] LABS: Iron Saturation 24.91 (15.00-50.00)
[2017-08-06 03:43] LABS: Vitamin D 25 Hydroxy 30.7 ng/mL (30.0-100.0)
== END | disposition home or self-care (01) ==
LOC: BARWHC3 14:10
PROVIDERS: ATTEND Surgery
DX: Z48.815 Encounter for surgical aftercare following surgery on the digestive system (principal); K21.9 Gastro-esophageal reflux disease without esophagitis; E66.01 Morbid (severe) obesity due to excess calories; E89.1 Postprocedural hypoinsulinemia; D50.8 Other iron deficiency anemias; E55.9 Vitamin D deficiency, unspecified; Z71.3 Dietary counseling and surveillance; Z68.30 Body mass index [BMI] 30.0-30.9, adult
CPT/HCPCS: 36415; 80053; 82306; 82607; 83540; 83550; 84425; 85027; 97803; 99211

== ENCOUNTER → 2017-11-11 | Outpatient (CLI) | payer OTHER ==
[2017-11-11 15:18] VITALS: BP 136/63; PULSE 62; TEMP 98.2; BMI 31.1
--- NOTE | 2017-11-11 15:41 | P.HPBAR ---
Bariatric H&P - History & Physicial H&P Date: 11/11/17 History & Physicial: Visit/CC: post op visit Patient initial contact: Initial weight: 161.592 kg Initial weight in pounds: 356.25 Height: 5 ft 10 in Initial BMI: 51.1 Last weight: Current weight: 98.52 kg Current weight in pounds: 217.20 Current BMI: 31.1 [place] body weight (based on NIH guidelines): 75.296 kg Excess body weight loss: 73.0% The patient is a 52 year-old M who presents for Bariatric Assessment. Patient presents today for sleeve gastrectomy follow-up. He has minimal complaints of GERD. His weight is remain stable. He has lost approximately 140 pounds. Past Medical History Past Medical History: GERD/Reflux, Hypertension, Skin Disorder Additional Past Medical History / Comment(s): PSORIASIS. EDEMA IN ANKLES OCC, R /T ACTIVITY. History of Any Multi-Drug Resistant Organisms: None Reported Past Surgical History: Adenoidectomy, Bariatric Surgery, Ear Surgery, Tonsillectomy Additional Past Surgical History / Comment(s): BMT. COLONOSCOPY X 2. EGD., gastric sleeve 08/16/16 Dr.Zubin Cook Past Anesthesia/Blood Transfusion Reactions: Previous Problems w/ Anesthesia Additional Past Anesthesia/Blood Transfusion Reaction / Comm: WOKE UP DURING COLONOSCOPY Past Psychological History: No Psychological Hx Reported Smoking Status: Never smoker Past Alcohol Use History: Occasional Past Drug Use History: None Reported - Past Family History Brother(s) Family Medical History: Cancer Surgical - Exam Vital Signs Temp Pulse BP 98.2 F 62 136/63 11/11/17 15:11 11/11/17 15:11 11/11/17 15:11 - General well developed, no distress - Eyes PERRL - ENT normal pinna - Respiratory normal expansion - Cardiovascular Rhythm: regular - Abdomen Abdomen: soft, non tender Bariatric Assessment & Plan Plan: Status post sleeve gastrectomy. Patient is doing quite well. He is less 140 pounds. His GERD is minimal and will be observed. He'll follow-up in 4 weeks. He is requesting information about her panniculectomy. Bariatric Checklist Checklist: Plan: Checklist: EGD: 1. Hiatal hernia: 2. H. Pylori: HgbA1c: Vitamin D: Smoking: Never smoker Primary care physician referral: kirby ([place]) Psychiatry clearance: Cardiology clearance: Sleep study: Diet journal: VTE risk score: VTE risk level: Rehab needs at discharge:
[2017-11-11 16:00] LABS: HCT 46.8 % (39.0-53.0); HGB 15.2 gm/dL (13.0-17.5); MCH 29.9 pg (25.0-35.0); MCHC 32.5 g/dL (31.0-37.0); MCV 91.9 fL (80.0-100.0); Mean Platelet Volume 6.6; Platelet Count 212 k/uL (150-450); RBC 5.09 m/uL (4.30-5.90); RDW 12.8 % (11.5-15.5); WBC 5.9 k/uL (3.8-10.6)
[2017-11-11 16:16] LABS: ALT 50 U/L (21-72); AST 26 U/L (17-59); Albumin 4.1 g/dL (3.5-5.0); Alkaline Phosphatase 66 U/L (38-126); Anion Gap 7 mmol/L; Blood Urea Nitrogen 24 mg/dL (9-20); Calcium 8.9 mg/dL (8.4-10.2); Carbon Dioxide 27 mmol/L (22-30); Chloride 105 mmol/L (98-107); Glucose 90 mg/dL (74-99); Potassium 5.2 mmol/L (3.5-5.1); Sodium 139 mmol/L (137-145); Total Bilirubin 0.5 mg/dL (0.2-1.3); Total Protein 6.1 g/dL (6.3-8.2)
[2017-11-12 01:42] LABS: Iron Saturation 15.61 (15.00-50.00)
[2017-11-12 01:50] LABS: Vitamin D 25 Hydroxy 37.5 ng/mL (30.0-100.0)
[2017-11-12 01:51] LABS: Folate, Serum 13.2 ng/mL
== END | disposition home or self-care (01) ==
LOC: BARWHC3 13:32
PROVIDERS: ATTEND Surgery
DX: Z48.815 Encounter for surgical aftercare following surgery on the digestive system (principal); E66.01 Morbid (severe) obesity due to excess calories; D50.9 Iron deficiency anemia, unspecified; E44.0 Moderate protein-calorie malnutrition; E55.9 Vitamin D deficiency, unspecified; Z68.31 Body mass index [BMI] 31.0-31.9, adult; Z98.84 Bariatric surgery status
CPT/HCPCS: 80053; 82306; 82607; 82746; 83540; 83550; 84425; 84443; 85027; 99211

== ENCOUNTER → 2017-12-09 | Outpatient (CLI) | payer OTHER ==
[2017-12-09 16:41] VITALS: BMI 30.2
[2017-12-09 19:17] VITALS: BP 166/95; PULSE 54; RESP 14; TEMP 98.1
--- NOTE | 2017-12-10 11:08 | P.HPBAR ---
Bariatric H&P - History & Physicial H&P Date: 12/09/17 History & Physicial: Visit/CC: sleeve f/u (15 mos) Patient initial contact: Initial weight: 161.592 kg Initial weight in pounds: 356.25 Height: 5 ft 10 in Initial BMI: 51.1 Last weight: Current weight: 95.617 kg Current weight in pounds: 210.80 Current BMI: 30.2 [place] body weight (based on NIH guidelines): 78.018 kg Excess body weight loss: 76.4% The patient is a 52 year-old M who presents for Bariatric Assessment. Patient presents today for sleeve gastrectomy follow-up. He's had some mild GERD. 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 He is requesting information on panniculectomy. He's had some mild GERD. Past Medical History Past Medical History: GERD/Reflux, Hypertension, Skin Disorder Additional Past Medical History / Comment(s): PSORIASIS. EDEMA IN ANKLES OCC, R /T ACTIVITY. History of Any Multi-Drug Resistant Organisms: None Reported Past Surgical History: Adenoidectomy, Bariatric Surgery, Ear Surgery, Tonsillectomy Additional Past Surgical History / Comment(s): BMT. COLONOSCOPY X 2. EGD., gastric sleeve 08/16/16 Dr.Zubin Cook Past Anesthesia/Blood Transfusion Reactions: Previous Problems w/ Anesthesia Additional Past Anesthesia/Blood Transfusion Reaction / Comm: WOKE UP DURING COLONOSCOPY Past Psychological History: No Psychological Hx Reported Smoking Status: Never smoker Past Alcohol Use History: Occasional Past Drug Use History: None Reported - Past Family History Brother(s) Family Medical History: Cancer Surgical - Exam Vital Signs Temp Pulse Resp BP 98.1 F 54 L 14 166/95 12/09/17 13:12 12/09/17 13:12 12/09/17 13:12 12/09/17 13:12 - General well developed, no distress - Eyes PERRL - Abdomen Abdomen: soft, non tender Bariatric Assessment & Plan Plan: Status post sleeve yesterday. Patient's had excellent weight loss. His GERD is minimal a will be observed. He'll follow-up in 3 months. Bariatric Checklist Checklist: Plan: Checklist: EGD: 1. Hiatal hernia: 2. H. Pylori: HgbA1c: Vitamin D: Smoking: Never smoker Primary care physician referral: kirby ([place]) Psychiatry clearance: Cardiology clearance: Sleep study: Diet journal: VTE risk score: VTE risk level: Rehab needs at discharge:
== END | disposition home or self-care (01) ==
LOC: BARWHC3 13:03
PROVIDERS: ATTEND Surgery
DX: Z48.815 Encounter for surgical aftercare following surgery on the digestive system (principal); K21.9 Gastro-esophageal reflux disease without esophagitis; Z98.84 Bariatric surgery status; E66.01 Morbid (severe) obesity due to excess calories; Z68.30 Body mass index [BMI] 30.0-30.9, adult
CPT/HCPCS: 97803; 99211

== ENCOUNTER → 2018-03-17 | Outpatient (CLI) | payer OTHER ==
[2018-03-17 15:01] VITALS: BP 164/91; PULSE 55; TEMP 98.2; BMI 30.4
--- NOTE | 2018-03-17 16:14 | P.HPBAR ---
Bariatric H&P - History & Physicial H&P Date: 03/17/18 History & Physicial: Visit/CC: panniculectomy consult Patient initial contact: Initial weight: 161.592 kg Initial weight in pounds: 356.25 Height: 5 ft 10 in Initial BMI: 51.1 Last weight: Current weight: 96.343 kg Current weight in pounds: 212.40 Current BMI: 30.4 [place] body weight (based on NIH guidelines): 75.296 kg Excess body weight loss: 75.6% The patient is a 52 year-old M who presents for Bariatric Assessment. Patient presents today for sleeve gastric a fall. He is requesting 1 year postoperative. He is an excellent weight loss patient's lost approximately 150 pounds. He's had issues with chronic skin irritation and his panniculus. Past Medical History Past Medical History: GERD/Reflux, Hypertension, Skin Disorder Additional Past Medical History / Comment(s): PSORIASIS. EDEMA IN ANKLES OCC, R /T ACTIVITY. History of Any Multi-Drug Resistant Organisms: None Reported Past Surgical History: Adenoidectomy, Bariatric Surgery, Ear Surgery, Tonsillectomy Additional Past Surgical History / Comment(s): BMT. COLONOSCOPY X 2. EGD., gastric sleeve 08/16/16 Dr.Zubin Cook Past Anesthesia/Blood Transfusion Reactions: Previous Problems w/ Anesthesia Additional Past Anesthesia/Blood Transfusion Reaction / Comm: WOKE UP DURING COLONOSCOPY Smoking Status: Never smoker - Past Family History Brother(s) Family Medical History: Cancer Surgical - Exam Vital Signs Temp Pulse BP 98.2 F 55 L 164/91 03/17/18 14:54 03/17/18 14:54 03/17/18 14:54 - General well developed, well nourished, no distress - Eyes PERRL - ENT normal pinna - Neck no masses - Respiratory normal expansion - Cardiovascular Rhythm: regular - Abdomen Abdomen: soft, non tender Bariatric Assessment & Plan Plan: Status post sleeve gastrectomy. Patient has had excellent weight loss. The patient wishes to undergo panniculectomy. He has had issues with chronic skin irritation testicles. I went over the risks and benefits of panniculectomy. He 'll follow-up in 2 months. Bariatric Checklist Checklist: Plan: Checklist: EGD: 1. Hiatal hernia: 2. H. Pylori: HgbA1c: Vitamin D: Smoking: Never smoker Primary care physician referral: kirby ([place]) Psychiatry clearance: Cardiology clearance: Sleep study: Diet journal: VTE risk score: VTE risk level: Rehab needs at discharge:
== END | disposition home or self-care (01) ==
LOC: BARWHC3 14:12
PROVIDERS: ATTEND Surgery
DX: Z48.815 Encounter for surgical aftercare following surgery on the digestive system (principal); Z98.84 Bariatric surgery status
CPT/HCPCS: 99211

== ENCOUNTER → 2019-04-06 | Outpatient (CLI) | payer OTHER ==
[2019-04-06 15:15] VITALS: BMI 33.7
[2019-04-06 15:22] VITALS: BP 146/87; PULSE 54; RESP 16; TEMP 98.3
--- NOTE | 2019-04-06 18:03 | P.HPBAR ---
Bariatric H&P - History & Physicial H&P Date: 04/06/19 History & Physicial: Visit/CC: sleeve 2017 Patient initial contact: Initial weight: 161.592 kg Initial weight in pounds: 356.25 Height: 5 ft 10 in Initial BMI: 51.1 Last weight: Current weight: 106.594 kg Current weight in pounds: 235.00 Current BMI: 33.7 [place] body weight (based on NIH guidelines): 75.296 kg Excess body weight loss: 63.7% The patient is a 53 year-old M who presents for Bariatric Assessment. Patient presents today for sleeve gastrectomy follow-up. He is doing quite well presents with GERD. Patient's a well-formed panniculus. Past Medical History Past Medical History: GERD/Reflux, Hypertension, Skin Disorder Additional Past Medical History / Comment(s): PSORIASIS. EDEMA IN ANKLES OCC, R/T ACTIVITY. History of Any Multi-Drug Resistant Organisms: None Reported Past Surgical History: Adenoidectomy, Bariatric Surgery, Ear Surgery, Tonsillectomy Additional Past Surgical History / Comment(s): BMT. COLONOSCOPY X 2. EGD., gastric sleeve 08/16/16 Dr.Zubin Cook Past Anesthesia/Blood Transfusion Reactions: Previous Problems w/ Anesthesia Additional Past Anesthesia/Blood Transfusion Reaction / Comm: WOKE UP DURING COLONOSCOPY Past Psychological History: No Psychological Hx Reported Smoking Status: Never smoker Past Alcohol Use History: Occasional Past Drug Use History: None Reported - Past Family History Brother(s) Family Medical History: Cancer Surgical - Exam Vital Signs Temp Pulse Resp BP 98.3 F 54 L 16 146/87 04/06/19 15:21 04/06/19 15:21 04/06/19 15:21 04/06/19 15:21 - General well developed, well nourished, no distress - Eyes PERRL - Abdomen Abdomen: soft, non tender Bariatric Assessment & Plan Plan: Status post sleeve gastrectomy. Patient has an excellent weight loss. Patient has a large panniculus. He was given an information booklet. He will follow-up in 3 months. His GERD is minimal and will be observed. Bariatric Checklist Checklist: Plan: Checklist: EGD: 1. Hiatal hernia: 2. H. Pylori: HgbA1c: Vitamin D: Smoking: Never smoker Primary care physician referral: mirta Carrillo) Psychiatry clearance: Cardiology clearance: Sleep study: Diet journal: VTE risk score: VTE risk level: Rehab needs at discharge:
== END | disposition home or self-care (01) ==
LOC: BARWHC3 14:20
PROVIDERS: ATTEND Surgery
DX: Z48.815 Encounter for surgical aftercare following surgery on the digestive system (principal); K21.9 Gastro-esophageal reflux disease without esophagitis; E66.01 Morbid (severe) obesity due to excess calories; Z98.84 Bariatric surgery status
CPT/HCPCS: 97803; 99211

== ENCOUNTER → 2020-08-01 | Outpatient (CLI) | payer OTHER ==
[2020-08-01 13:34] VITALS: BP 139/86; PULSE 67; RESP 16; TEMP 98.6; BMI 37.4
[2020-08-01 14:51] LABS: HCT 46.2 % (39.0-53.0); HGB 15.3 gm/dL (13.0-17.5); MCH 30.4 pg (25.0-35.0); MCHC 33.2 g/dL (31.0-37.0); MCV 91.7 fL (80.0-100.0); Mean Platelet Volume 6.8; Platelet Count 245 k/uL (150-450); RBC 5.04 m/uL (4.30-5.90); RDW 12.6 % (11.5-15.5); WBC 7.6 k/uL (3.8-10.6)
[2020-08-02 02:18] LABS: % Iron Saturation 20.34 (15.00-50.00); African American GFR (CKD) 109.5 (60.0-200.0); Albumin 4.3 g/dL (3.80-4.90); Albumin/Globulin Ratio 2.53 (1.60-3.17); Anion Gap 7.3 mmol/L (4.00-12.00); BUN/Creat Ratio 24.44 Ratio (12.00-20.00); Calcium 8.7 mg/dL (8.7-10.3); Carbon Dioxide 27.7 mmol/L (21.6-31.8); Globulin 1.7 g/dL (1.6-3.3); Non-African American GFR(CKD) 94.5 (60.0-200.0); Potassium 4.5 mmol/L (3.5-5.5); Total Bilirubin 0.5 mg/dL (0.3-1.2)
[2020-08-02 02:28] LABS: Ferritin 104.7 ng/mL (22.0-322.0)
[2020-08-02 03:20] LABS: Folate, Serum 12.2 ng/mL
[2020-08-02 13:57] LABS: Zinc, Serum 45 ug/dL (60-130)
[2020-08-03 07:33] LABS: Vitamin A 40 ug/dL (38-106)
[2020-08-04 00:19] LABS: Selenium 101 mcg/L (63-160)
--- NOTE | 2020-08-08 15:57 | P.HPBAR ---
Bariatric H&P - History & Physicial H&P Date: 08/01/20 History & Physicial: Visit/CC: f/u Patient initial contact: Initial weight: 161.592 kg Initial weight in pounds: 356.25 Height: 5 ft 10 in Initial BMI: 51.1 Last weight: Current weight: 118.388 kg Current weight in pounds: 261.00 Current BMI: 37.4 [place] body weight (based on NIH guidelines): 75.296 kg Excess body weight loss: 50.0% The patient is a 55 year-old M who presents for Bariatric Assessment. Patient presents today for sleeve gastrectomy follow-up. He's had approximately 20 pound weight gain. He's had some GERD. Past Medical History Past Medical History: GERD/Reflux, Hypertension, Skin Disorder Additional Past Medical History / Comment(s): PSORIASIS. EDEMA IN ANKLES OCC, R/T ACTIVITY. History of Any Multi-Drug Resistant Organisms: None Reported Past Surgical History: Adenoidectomy, Bariatric Surgery, Ear Surgery, Tonsillectomy Additional Past Surgical History / Comment(s): BMT. COLONOSCOPY X 2. EGD., gastric sleeve 08/16/16 Dr.Zubin Cook Past Anesthesia/Blood Transfusion Reactions: Previous Problems w/ Anesthesia Additional Past Anesthesia/Blood Transfusion Reaction / Comm: WOKE UP DURING COLONOSCOPY Past Psychological History: No Psychological Hx Reported Smoking Status: Never smoker Past Alcohol Use History: Occasional Past Drug Use History: None Reported - Past Family History Brother(s) Family Medical History: Cancer Surgical - Exam Vital Signs Temp Pulse Resp BP 98.6 F 67 16 139/86 08/01/20 13:32 08/01/20 13:32 08/01/20 13:32 08/01/20 13:32 - General well developed, well nourished, no distress - Eyes PERRL - ENT normal pinna - Neck no masses - Respiratory normal expansion - Cardiovascular Rhythm: regular Results - Labs 08/01/20 14:24 08/01/20 14:24 Bariatric Assessment & Plan Plan: Status post irrigation. Patient's crit is minimal be observed. He'll follow-up in 8 weeks. Bariatric Checklist Checklist: Plan: Checklist: EGD: 1. Hiatal hernia: 2. H. Pylori: HgbA1c: Vitamin D: Smoking: Never smoker Primary care physician referral: kirby ([place]) Psychiatry clearance: Cardiology clearance: Sleep study: Diet journal: VTE risk score: VTE risk level: Rehab needs at discharge:
== END ==
LOC: BARWHC3 13:14
PROVIDERS: ATTEND Surgery
DX: Z48.815 Encounter for surgical aftercare following surgery on the digestive system (principal); Z98.84 Bariatric surgery status; K21.9 Gastro-esophageal reflux disease without esophagitis
CPT/HCPCS: 80053; 82306; 82607; 82728; 82746; 83540; 83550; 83735; 84255; 84443; 84590; 84630; 85027; 97803; 99211

== ENCOUNTER → 2020-10-03 | Outpatient (CLI) | payer OTHER ==
[2020-10-03 14:11] VITALS: BP 159/93; PULSE 58; RESP 18; TEMP 97.8; BMI 38.7
--- NOTE | 2020-10-03 15:19 | P.HPBAR ---
Bariatric H&P - History & Physicial H&P Date: 10/03/20 History & Physicial: Visit/CC: follow up Patient initial contact: Initial weight: 161.592 kg Initial weight in pounds: 356.25 Height: 5 ft 10 in Initial BMI: 51.1 Last weight: Current weight: 122.47 kg Current weight in pounds: 270.00 Current BMI: 38.7 [place] body weight (based on NIH guidelines): 75.296 kg Excess body weight loss: 45.3% The patient is a 55 year-old M who presents for Bariatric Assessment. Patient presents today for sleeve gastrectomy fall. He is gaining another 9 pounds since last visit. He's had some minimal GERD. Past Medical History Past Medical History: GERD/Reflux, Hypertension, Skin Disorder Additional Past Medical History / Comment(s): PSORIASIS. EDEMA IN ANKLES OCC, R/T ACTIVITY. History of Any Multi-Drug Resistant Organisms: None Reported Past Surgical History: Adenoidectomy, Bariatric Surgery, Ear Surgery, Tonsillectomy Additional Past Surgical History / Comment(s): BMT. COLONOSCOPY X 2. EGD., gastric sleeve 08/16/16 Dr.Zubin Cook Past Anesthesia/Blood Transfusion Reactions: Previous Problems w/ Anesthesia Additional Past Anesthesia/Blood Transfusion Reaction / Comm: WOKE UP DURING COLONOSCOPY Past Psychological History: No Psychological Hx Reported Smoking Status: Never smoker Past Alcohol Use History: Occasional Past Drug Use History: None Reported - Past Family History Brother(s) Family Medical History: Cancer Surgical - Exam Vital Signs Temp Pulse Resp BP 97.8 F 58 L 18 159/93 10/03/20 14:05 10/03/20 14:05 10/03/20 14:05 10/03/20 14:05 - General well developed, well nourished, no distress - Eyes PERRL - ENT normal pinna - Neck no masses - Respiratory normal expansion - Cardiovascular Rhythm: regular - Abdomen Abdomen: soft, non tender Bariatric Assessment & Plan Plan: Patient has continued weight gain. He will modify his diet. Patient's GERD and minimal will be observed. Bariatric Checklist Checklist: Plan: Checklist: EGD: 1. Hiatal hernia: 2. H. Pylori: HgbA1c: Vitamin D: Smoking: Never smoker Primary care physician referral: Zoey, NPC ([place]) Psychiatry clearance: Cardiology clearance: Sleep study: Diet journal: VTE risk score: VTE risk level: Rehab needs at discharge:
== END ==
LOC: BARWHC3 13:55
PROVIDERS: ATTEND Surgery
DX: Z09 Encounter for follow-up examination after completed treatment for conditions other than malignant neoplasm (principal); K21.9 Gastro-esophageal reflux disease without esophagitis; R63.5 Abnormal weight gain; I10 Essential (primary) hypertension; Z98.84 Bariatric surgery status
CPT/HCPCS: 99211

== ENCOUNTER → 2020-10-31 | Outpatient (CLI) | payer OTHER ==
[2020-10-31 15:20] VITALS: BP 162/80; PULSE 87; RESP 18; TEMP 98.2; BMI 38.2
--- NOTE | 2020-12-08 12:31 | P.HPBAR ---
Bariatric H&P - History & Physicial H&P Date: 10/31/20 History & Physicial: Visit/CC: follow up Patient initial contact: Initial weight: 161.592 kg Initial weight in pounds: 356.25 Height: 5 ft 10 in Initial BMI: 51.1 Last weight: Current weight: 121.109 kg Current weight in pounds: 267.00 Current BMI: 38.2 [place] body weight (based on NIH guidelines): 75.296 kg Excess body weight loss: 46.9% The patient is a 55 year-old M who presents for Bariatric Assessment. Patient presents today for sleeve gastrectomy fall. He's had some weight gain. He has minimal GERD. Past Medical History Past Medical History: GERD/Reflux, Hypertension, Skin Disorder Additional Past Medical History / Comment(s): PSORIASIS. EDEMA IN ANKLES OCC, R/T ACTIVITY. History of Any Multi-Drug Resistant Organisms: None Reported Past Surgical History: Adenoidectomy, Bariatric Surgery, Ear Surgery, Tonsillectomy Additional Past Surgical History / Comment(s): BMT. COLONOSCOPY X 2. EGD., gastric sleeve 08/16/16 Dr.Zubin Cook Past Anesthesia/Blood Transfusion Reactions: Previous Problems w/ Anesthesia Additional Past Anesthesia/Blood Transfusion Reaction / Comm: WOKE UP DURING COLONOSCOPY Past Psychological History: No Psychological Hx Reported Smoking Status: Never smoker Past Alcohol Use History: Occasional Past Drug Use History: None Reported - Past Family History Brother(s) Family Medical History: Cancer Surgical - Exam Vital Signs Temp Pulse Resp BP 98.2 F 87 18 162/80 10/31/20 15:17 10/31/20 15:17 10/31/20 15:17 10/31/20 15:17 - General well developed, well nourished, no distress - Eyes PERRL - ENT normal pinna - Neck no masses - Respiratory normal expansion - Cardiovascular Rhythm: regular - Abdomen Abdomen: soft, non tender Bariatric Assessment & Plan Plan: Status post sleeve yesterday. Patient's had weight gain. He is going to work on his diet. His GERD is minimal and will be observed. Bariatric Checklist Checklist: Plan: Checklist: EGD: 1. Hiatal hernia: 2. H. Pylori: HgbA1c: Vitamin D: Smoking: Never smoker Primary care physician referral: AMANDA Greer) Psychiatry clearance: Cardiology clearance: Sleep study: Diet journal: VTE risk score: VTE risk level: Rehab needs at discharge:
== END ==
LOC: BARWHC3 14:06
PROVIDERS: ATTEND Surgery
DX: Z09 Encounter for follow-up examination after completed treatment for conditions other than malignant neoplasm (principal); K21.9 Gastro-esophageal reflux disease without esophagitis; I10 Essential (primary) hypertension; Z98.84 Bariatric surgery status
CPT/HCPCS: 99211

== ENCOUNTER → 2022-04-02 | Outpatient (CLI) | payer OTHER ==
[2022-04-02 14:28] VITALS: BP 151/85; PULSE 60; RESP 12; TEMP 98
--- NOTE | 2022-04-02 15:06 | P.HPBAR ---
Bariatric H&P - History & Physicial H&P Date: 04/02/22 History & Physicial: Visit/CC: follow up Patient initial contact: Initial weight: 161.592 kg Initial weight in pounds: 356.25 Height: 5 ft 10 in Initial BMI: Last weight: Current weight: 129.274 kg Current weight in pounds: Current BMI: [place] body weight (based on NIH guidelines): Excess body weight loss: The patient is a 56 year-old M who presents for Bariatric Assessment. Patient presents today for bariatric follow-up. He's had quit of GERD. He's a slight increases weight. Past Medical History Past Medical History: GERD/Reflux, Hypertension, Skin Disorder Additional Past Medical History / Comment(s): PSORIASIS. EDEMA IN ANKLES OCC, R/T ACTIVITY. History of Any Multi-Drug Resistant Organisms: None Reported Past Surgical History: Adenoidectomy, Bariatric Surgery, Ear Surgery, Tonsillectomy Additional Past Surgical History / Comment(s): BMT. COLONOSCOPY X 2. EGD., gastric sleeve 08/16/16 Dr.Zubin Cook Past Anesthesia/Blood Transfusion Reactions: Previous Problems w/ Anesthesia Additional Past Anesthesia/Blood Transfusion Reaction / Comm: WOKE UP DURING COLONOSCOPY Past Psychological History: No Psychological Hx Reported Smoking Status: Never smoker Past Alcohol Use History: Occasional Past Drug Use History: None Reported - Past Family History Brother(s) Family Medical History: Cancer Surgical - Exam Vital Signs Temp Pulse Resp BP 98.0 F 60 12 151/85 04/02/22 14:24 04/02/22 14:24 04/02/22 14:24 04/02/22 14:24 - General well developed, well nourished, no distress - Eyes PERRL - Abdomen Abdomen: soft, non tender Bariatric Assessment & Plan Plan: A shunt GERD is minimal is well controlled with omeprazole. Patient will follow-up in 3 months. If his GERD worsens we will perform esophagram upper GI and EGD. Bariatric Checklist Checklist: Plan: Checklist: EGD: 1. Hiatal hernia: 2. H. Pylori: HgbA1c: Vitamin D: Smoking: Never smoker Primary care physician referral: AMANDA Greer ([place]) Psychiatry clearance: Cardiology clearance: Sleep study: Diet journal: VTE risk score: VTE risk level: Rehab needs at discharge:
== END ==
LOC: BARWHC3 14:10
PROVIDERS: ATTEND Surgery
DX: Z09 Encounter for follow-up examination after completed treatment for conditions other than malignant neoplasm (principal)
CPT/HCPCS: 99211